=== PATIENT | female | born 1995 | race Caucasian/White ===

== ENCOUNTER → 2017-10-28 | Outpatient (CLI) | payer OTHER | END | disposition home or self-care (01) | LOC: C.LABSPEC 17:49 | PROVIDERS: ATTEND Obstetrics & Gynecology | DX: Z34.03 Encounter for supervision of normal first pregnancy, third trimester (principal) ==

== ENCOUNTER 2017-11-15 23:25 | Outpatient (CLI) | payer OTHER ==
[~2017-11-15] VITALS: Ht 162.6 cm; Wt 67.1 kg
[2017-11-16 00:50] VITALS: Ht 162.6 cm; Wt 67.1 kg
[2017-11-16] MEDS ORDERED: BENADRYL HOME PACK 25 MG TAB PO ONE (03:45)
== END 2017-11-16 04:00 | disposition home or self-care (01) ==
LOC: C.LD 23:25 → C.OPB 23:25
PROVIDERS: ATTEND Obstetrics & Gynecology
DX: O62.9 Abnormality of forces of labor, unspecified (principal); Z3A.39 39 weeks gestation of pregnancy

== ENCOUNTER 2017-11-24 00:59 | Outpatient (CLI) | payer OTHER ==
[~2017-11-24] VITALS: Ht 162.6 cm; Wt 67.0 kg
[2017-11-24 02:26] VITALS: Ht 162.6 cm; Wt 67.0 kg
[2017-11-24] MEDS ORDERED: NURSING VERBAL MED ORDER ONE (05:00)
[2017-11-24] MEDS ORDERED: ACETAMINOPHEN 325 MG TAB ONE (05:06)
[2017-11-24] MEDS ORDERED: ACETAMINOPHEN 325 MG TAB PO ONE (05:15)
[2017-11-25] MEDS ORDERED: PRENTAB26 PO (13:28)
== END 2017-11-24 05:20 | disposition home or self-care (01) ==
LOC: C.OPB 00:59 → C.LD 00:59 → C.OPB 05:20
PROVIDERS: ATTEND Obstetrics & Gynecology
DX: Z34.00 Encounter for supervision of normal first pregnancy, unspecified trimester (principal)

== ENCOUNTER 2020-03-11 23:25 | Inpatient (IN) ==
[2020-03-12] MEDS ORDERED: OXYTOCIN 30 UNITS/500 ML BAG IV PRN ×2 (00:53→09:31)
--- NOTE | 2020-03-12 00:57 | History & Physical Report ---
Date of Service March 12, 2020 Assessment & Plan (1) : Since she has made cervical change since last office visit, regular ctx and getting more and more uncomfortable, will admit for labor. History of Present Illness Chief Complaint: labor Primary Care Provider: NO PCP 24yo @ 39 5/7, contractions every 2 minutes, getting worse throughout the night. No leaking fluid, no vaginal bleeding. + movement. GDM, diet controlled. Allergies Allergy/AdvReac Type Severity Reaction Status Date / Time No Known Drug Allergies Allergy Unknown Verified 03/11/20 23:43 Home Medications Medication Instructions Recorded Confirmed Type prenat.vits,eugene,glj-[id number] 1 tab PO DAILY 01/18/19 03/11/20 History acetone (urine) test #50 ea 01/11/20 03/06/20 Rx blood sugar diagnostic #150 ea 01/11/20 03/06/20 Rx blood-glucose meter #1 ea 01/11/20 03/06/20 Rx lancets 33 gauge #150 ea 01/11/20 03/06/20 Rx breast pump #1 ea 02/13/20 03/06/20 Rx Patient History Medical History History of varicella Normal labor PPD#2 with acute urinary retention. TOV yesterday with void x1 followed by inability to void again and large bladder volume, so gardner was replaced and then removed at 4am today. If unable to void by noon, for replacement of gardner with leg bag teaching to allow D/C home, and removal in office setting after 3 days. If able to void with low residual, can go home without catheter. Spontaneous vaginal delivery 10/2017 [facility] Surgical History No pertinent past surgical history Family History Mother Anemia Social History Smoking Status: Never smoker Hx Alcohol Use: No Hx Substance Use: No Preferred Language: Chinese Communication Ability: Effective Beliefs That Will Affect Care: None marital status: marital status details: Spouse Bryan Gates ([phone] Current Living Situation: Spouse Current Living Situation Comment: apartment with and daughter Other Information That Helps Us Care for You: No Assistive Devices: None Review of Systems All systems reviewed & are unremarkable except as noted in HPI & below Physical Exam Physical Exam: FHT Cat 1 [place] Q 2 SVE 3-4/80/-2 Constitutional: WD/WN, vitals as above Respiratory: normal respiratory effort, lungs clear to auscultation no respiratory distress Cardiovascular: Rate/Rhythm: regular rate and regular rhythm Gastrointestinal (Abdomen): Inspection/Auscultation: abdomen normal to inspection Percussion/Palpation: abdomen soft; abdomen nontender Gravid. No s/s chorio or abruption. Skin: no rashes, warm and dry Psychiatric: A+Ox3, euthymic affect Results & Data ([facility]) Vital Signs (Past 12 Hours) Vital Signs Temp Pulse Resp BP 03/11/20 23:44 36.6 C 18 03/11/20 23:40 36.6 C 89 18 120/74 Coding Level of Care Code None Diagnoses Z34.90
[2020-03-12 01:25] LABS: Hematocrit (blood only) 35.2 % (37-47); Hemoglobin 12.4 g/dL (12.0-16.0); Mean Corpuscular Hemoglobin 31.3 pg (25-34); Mean Corpuscular Hgb Conc 35.2 g/dL (32-36); Mean Corpuscular Volume 88.9 fL (80-100); Mean Platelet Volume 13.2 fL (7.4-10.4); Platelet Count 158 K/uL (130-400); RDW Coefficient of Variation 13.4 % (11.5-14.5); RDW Standard Deviation 43.5 fL (36.4-46.3); Red Blood Count 3.96 M/uL (4.2-5.4); White Blood Count 10.24 K/uL (4.8-10.8)
--- NOTE | 2020-03-12 03:59 | Labor Progress Brief Note ---
Date of Service March 12, 2020 Subjective Uncomfortable with ctx. Desires epidural. FHT Cat 1 [place] Q 2-5 SVE 4-5/90/-1 AROM clear with pink tinge. Assessment & Plan Admission and Anticipated Discharge Date Admission Date: March 12, 2020 Results & Data ([facility]) Vital Signs (Past 12 Hours) Vital Signs Temp Pulse Resp BP 03/12/20 03:19 36.7 C 93 H 18 114/61 03/11/20 23:44 36.6 C 18 03/11/20 23:40 36.6 C 89 18 120/74 Coding Level of Care Code None
[2020-03-12] MEDS: LACTATED RINGER'S 1,000 ML IV PRN ×2 (04:04→05:04)
[2020-03-12] MEDS ORDERED: ePHEDrine sulfate 50 MG/ML AMP ONE (04:08)
[2020-03-12] MEDS ORDERED: fentaNYL citrate 100 MCG/2 ML VIAL ONE (04:09)
[2020-03-12] MEDS ORDERED: SODIUM CHLORIDE 0.9% INJ 10 ML VIAL ONE (04:09)
[2020-03-12] MEDS ORDERED: BUPIVACAINE 0.25% 30 ML VIAL ONE (04:09)
[2020-03-12] MEDS ORDERED: fentaNYL 2MCG/ML ROPIVACAINE 1.25MG/ML 100 ML BAG EPI ONE (04:10)
--- NOTE | 2020-03-12 04:52 | Anesthesiology Consultation ---
Date of Service March 12, 2020 Assessment & Plan Chart Review Chart Review: Acceptable Risk for Surgery, Patient NOT seen in Pre Admission Testing and Acceptable Risk for Labor Epidural Consults Requested none ASA ASA2 Proposed Anesthesia Anesthesia Type: Labor Epidural and CSE Risk / Benefits Reviewed With: PT / POA / Parent / Guardian, Accepts Plan and Informed Consent Obtained Additional Comments: covid test negative History Height/Weight Height: 5 ft 5 in Weight: 67.132 kg Allergies Allergy/AdvReac Type Severity Reaction Status Date / Time No Known Drug Allergies Allergy Unknown Verified 03/11/20 23:43 Medications Home Medications Medication Instructions Recorded Confirmed Last Taken prenat.vits,eugene,[id number] 1 tab PO DAILY 01/18/19 03/11/20 03/11/20 acetone (urine) test #50 ea 01/11/20 03/06/20 Unknown blood sugar diagnostic #150 ea 01/11/20 03/06/20 Unknown blood-glucose meter #1 ea 01/11/20 03/06/20 Unknown lancets 33 gauge #150 ea 01/11/20 03/06/20 Unknown breast pump #1 ea 02/13/20 03/06/20 Unknown Active Medications Generic Name Dose Route Start Last Admin Trade Name Freq PRN Reason Stop Dose Admin Lactated Ringer's 1,000 mls @ 125 mls/hr 03/12/20 00:53 03/12/20 04:04 Lr IV 03/14/20 00:52 999 mls/hr .Q8H PRN Administration L&D Protocol Protocol NPO Date Last Intake of Fluids: 03/12/20 Time Last Intake of Fluids: 04:00 Date Last Intake of Solids: 03/11/20 Time Last Intake of Solids: 18:30 Past Medical History Medical History History of varicella Normal labor PPD#2 with acute urinary retention. TOV yesterday with void x1 followed by inability to void again and large bladder volume, so gardner was replaced and then removed at 4am today. If unable to void by noon, for replacement of gardner with leg bag teaching to allow D/C home, and removal in office setting after 3 days. If able to void with low residual, can go home without catheter. Spontaneous vaginal delivery 10/2017 [facility] Exercise / Class Metabolic Activity II 4-5 Yardwork/Stairs/Walk up hill Past Family History Family History Mother Anemia Past Surgical History Surgical History No pertinent past surgical history Past Anesthesia History No Hx of Anesthesia Complications and No Family Hx of Anesthesia Complications History of PONV No Hx of PONV and No Hx of Motion Sickness Social History Smoking Status: Never smoker Hx Alcohol Use: No Hx Substance Use: No Physical Exam Vital Signs Last Vital Signs Temp 36.5 C 03/12/20 03:58 Pulse 89 03/12/20 04:45 Resp 18 03/12/20 03:58 BP 114/61 03/12/20 03:19 Pulse Ox 100 03/12/20 04:45 Constitutional + obese ENMT Mouth: no dentition abnormality Thyromental Distance: < 3.5 Finger Breadths Mallampati Class: II Neck normal visual inspection and trachea midline; neck extension not limited Respiratory normal respiratory effort Auscultation: lungs clear to auscultation bilaterally Cardiovascular Rate/Rhythm: regular rate and regular rhythm Heart Sounds: no murmur Vessels: no carotid bruit Musculoskeletal Spine: lumbar spine normal to inspection; normal cervical ROM Neurologic moves all extremities Motor/Sensory: no sensory deficit Psychiatric Orientation: alert and oriented x 3 Testing Laboratory Results 03/12/20 01:13 03/12/20 02:18 POC Glucose 92
[2020-03-12] MEDS ORDERED: ONDANSETRON INJ 2 MG/ML 2 ML VIAL IV PRN (05:16)
[2020-03-12] MEDS ORDERED: NALOXONE HCL 0.4 MG/1 ML VIAL/CARP IV PRN (05:16)
[2020-03-12] MEDS ORDERED: ePHEDrine sulfate 50 MG/ML AMP IV PRN (05:16)
[2020-03-12] MEDS ORDERED: fentaNYL 2MCG/ML ROPIVACAINE 1.25MG/ML 100 ML BAG EPI PRN (05:16)
[2020-03-12] MEDS ORDERED: diphenhydrAMINE 50 MG/ML VIAL IV PRN (05:16)
[2020-03-12] MEDS ORDERED: PROMETHAZINE HCL 25 MG in SODIUM CHLORIDE 0.9% 50 ML IV PRN (05:16)
[2020-03-12] MEDS ORDERED: NALOXONE HCL 1 MG in SODIUM CHLORIDE 0.9% 1000ML 1,000 ML IV PRN (05:16)
[2020-03-12 09:28] LABS: Base Excess Cord Arterial Bld -3.2 mEq/L (-9-1.8); CO2 Cord Arterial Blood 65 mmHg (39.1-73.5); HCO3 Cord Arterial Blood 26 mmol/L (19.7-28.5); PO2 Cord Arterial Blood 25 mmHg (4.1-31.7); pH Cord Arterial Blood 7.23 (7.1-7.38)
--- NOTE | 2020-03-12 09:28 | Delivery Summary ---
Vaginal Delivery Summary Date of Service March 12, 2020 Findings: Viable male infant with Apgars of 9 and 10. Baby delivered over a midline episiotomy. Cord gases cord blood samples obtained. Episiotomy repaired with 4-0 and 2-0 Vicryl. Estimated blood loss 300 cc. Labor course: The patient is a 24-year-old 2 para 1, with an EDC of 14 March, at 39+ weeks gestational age who presented to labor and delivery in active labor. Contractions began at approximately 2000 hrs. on 11 March. They increased in intensity. Patient denied vaginal bleeding or leaking of fluid. The patient's course was remarkable for gestational diabetes diagnosed to 28 weeks gestational weeks. The patient was managed per protocol and abdominal circumferences were all less than the 75th percentiles. Laboratory values for the show blood type of O+, antibody negative, rubella immune, hepatitis B negative, she declined all genetic screening, and she had a negative third trimester beta strep culture. Upon admission the patient was deemed to be in active labor anesthesia was consulted and an epidural was placed. Following placement of the epidural patient had artificial rupture membranes of clear fluid. Patient progressed to full dilatation and began her second stage. Delivering physician assumed care for the patient at this point. Patient pushed for approximately 10 minutes delivering the viable male infant over the midline episiotomy. Cord was clamped and cut cord gases cord blood samples were obtained. Placenta was delivered spontaneously. Episiotomy was repaired with 4-0 and 2-0 Vicryl in a routine fashion estimated blood loss was 300 cc. Sponge and needle count was correct. [facility] Vaginal Delivery Charge Vaginal Delivery Codes: 28342 global code for the antepartum, delivery, and post-
[2020-03-12] MEDS ORDERED: BENZOCAINE 20% AER SPR 82.5 GM CAN EXT PRN (09:31)
[2020-03-12] MEDS ORDERED: SUPERCREAM 0.870% 15 GM JAR EXT PRN (09:31)
[2020-03-12] MEDS ORDERED: HYDROCORTISONE ACETATE 25 MG SUPP PR PRN (09:31)
[2020-03-12] MEDS ORDERED: ACETAMINOPHEN 325 MG TAB PO PRN (09:31)
[2020-03-12] MEDS ORDERED: ACETAMINOPHEN W/CODEINE #3 1 TAB PO PRN (09:31)
[2020-03-12] MEDS ORDERED: DIPHTHERIA/TETANUS/PERTUSSIS 0.5 ML SYR/VIAL IM ONE (09:31)
[2020-03-12 09:33] LABS: Base Excess Cord Venous Blood -1.2 mEq/L (-7.7-1.9); Cord Venous Blood HCO3 25 mmol/L (18.4-26.8); Cord Venous Blood PCO2 47 mmHg (30.4-57.2); Cord Venous Blood PO2 28 mmHg (14.1-43.3); Cord Venous Blood pH 7.34 (7.20-7.44); Oxygen Sat Cord Arterial Blood < 60.0 % (<60)
--- NOTE | 2020-03-12 09:48 | Anesthesiology Progress Note ---
Date of Service March 12, 2020 Anesthesia Post Procedure Vital Signs Vital Signs: Temp Pulse Resp BP Pulse Ox 03/12/20 09:34 80 132/57 L 03/12/20 09:20 95 H 174/68 H 03/12/20 09:03 83 104/55 L 03/12/20 08:56 93 H 117/59 L 03/12/20 08:46 103 H 92 03/12/20 08:45 98 H 99 03/12/20 08:42 92 H 122/58 L 03/12/20 08:41 87 93 03/12/20 08:40 104 H 100 03/12/20 08:35 95 H 97 03/12/20 08:30 97 H 100 03/12/20 08:27 87 131/63 03/12/20 08:25 85 100 03/12/20 08:20 92 H 97 03/12/20 08:15 89 100 03/12/20 08:12 88 121/70 03/12/20 08:10 91 H 97 03/12/20 08:05 85 99 03/12/20 08:00 86 98 03/12/20 07:57 89 119/61 03/12/20 07:55 92 H 99 03/12/20 07:50 90 97 03/12/20 07:45 88 98 03/12/20 07:42 90 111/64 03/12/20 07:40 94 H 98 03/12/20 07:35 86 97 03/12/20 07:30 36.8 C 91 H 16 98 03/12/20 07:26 94 H 110/60 03/12/20 07:25 86 98 03/12/20 07:20 85 99 03/12/20 07:15 83 99 03/12/20 07:12 78 114/59 L 03/12/20 07:10 93 H 99 03/12/20 07:05 84 98 03/12/20 07:00 77 18 99 03/12/20 06:57 76 110/59 L 03/12/20 06:55 78 97 03/12/20 06:50 80 97 03/12/20 06:45 72 98 03/12/20 06:42 80 110/61 03/12/20 06:40 80 98 03/12/20 06:35 76 99 12/15/20 06:30 37.1 C 83 18 100 03/12/20 06:27 75 129/75 03/12/20 06:25 87 100 03/12/20 06:20 78 97 03/12/20 06:15 78 96 03/12/20 06:13 76 106/55 L 03/12/20 06:10 80 96 03/12/20 06:05 80 96 03/12/20 06:00 77 18 96 03/12/20 05:57 77 104/56 L 03/12/20 05:55 81 96 03/12/20 05:50 76 97 03/12/20 05:45 78 97 03/12/20 05:41 80 114/66 03/12/20 05:40 73 98 03/12/20 05:35 77 97 03/12/20 05:30 77 18 97 03/12/20 05:26 75 116/62 03/12/20 05:25 76 99 03/12/20 05:24 75 104/61 03/12/20 05:22 80 111/65 03/12/20 05:20 79 120/63 99 03/12/20 05:18 71 113/64 03/12/20 05:16 85 118/66 03/12/20 05:15 77 100 03/12/20 05:14 76 118/61 03/12/20 05:13 79 139/69 03/12/20 05:12 77 92 03/12/20 05:10 78 99 03/12/20 05:09 79 111/70 03/12/20 05:06 86 146/88 H 03/12/20 05:05 89 99 03/12/20 05:01 88 146/84 H 03/12/20 05:00 95 H 99 03/12/20 04:58 90 93 03/12/20 04:55 79 100 03/12/20 04:50 79 100 03/12/20 04:45 89 100 03/12/20 04:40 73 100 03/12/20 04:35 71 98 03/12/20 04:30 69 100 03/12/20 04:25 71 100 03/12/20 04:20 80 99 03/12/20 04:15 79 100 03/12/20 04:10 76 99 03/12/20 04:05 78 100 03/12/20 03:58 36.5 C 18 03/12/20 03:19 36.7 C 93 H 18 114/61 03/11/20 23:44 36.6 C 18 03/11/20 23:40 36.6 C 89 18 120/74 Transfer of Care Handoff Completed per policy Notes Mental Status: alert / awake / arousable and participated in evaluation Patient Amnestic to Procedure: Yes Nausea / Vomiting: adequately controlled Pain: adequately controlled Airway Patency, RR, SpO2: stable & adequate BP & HR: stable & adequate Hydration State: stable & adequate Anesthetic Complications: no major complications apparent and Pt Satisfied with anesthetic care
[2020-03-12] MEDS: IBUPROFEN 600 MG TAB PO PRN ×2 (18:03→22:47)
[2020-03-12] MEDS: DOCUSATE SODIUM 100 MG CAP PO SCH (20:25)
--- NOTE | 2020-03-13 06:53 | Obstetrical Progress Note ---
Date of Service <Lasha Blake MD - Last Filed: 03/13/20 07:20> March 13, 2020 Assessment & Plan <Lasha Blake MD - Last Filed: 03/13/20 07:20> (1) state: 24 y/o s/p at 39+wks on 03/12/20 PPD1. Stable. O+. Rubella immune. - other than voiding, meeting other milestones. - continue monitoring for urinary retention and continue intermittent straight cath - continue routine care - tentative dispo tomorrow for further monitoring of UOP today Subjective <Lasha Blake MD - Last Filed: 03/13/20 07:20> Ambulation: ambulating normally Voiding: no voiding problems Passing Gas:: Yes Diet Tolerance:: regular diet Lochia:: Small Feeding Type:: breast feeding Current Pain Level(1-10): 0 Still requiring intermittent straight cath. States that since yesterday evening, has been able to void in small amounts, some improvement. Requested straight cath this AM. No other complaints. Review of Systems Denies fever, chills, sweats Denies shortness of breath, chest pain, palpitations. Denies breast pain. Denies dysuria. Denies headache or changes in vision. Denies nausea/vomiting. Denies numbness, tingling, weakness. Physical Exam <Lasha Blake MD - Last Filed: 03/13/20 07:20> General: Alert, oriented. No acute distress. Cardiac: Regular rate and rhythm, no murmurs/rubs/gallops. Respiratory: Clear to auscultation bilaterally, no wheezes/rales/rhonchi. No respiratory distress. Abdomen: , soft, nontender. Uterus: Uterine fundus firm, palpable 1cm above to the right of umbilicus. Lower Extremities: Trace LE edema. No deep calf pain. Enrique's negative bilaterally. Results & Data ([facility]) <Lasha Blake MD - Last Filed: 03/13/20 07:20> Vital Signs (Past 12 Hours) Vital Signs Temp Pulse Resp BP 03/13/20 03:29 36.3 C L 87 16 91/54 L 03/13/20 00:00 36.4 C L 82 18 101/62 03/12/20 19:25 36.4 C L 89 18 120/76 Medications Administered <Leon J. Hovick Jr, MD, FACOG - Last Filed: 03/13/20 07:30> Co-Signing Physician Notes Resident Physician Supervision Note: I was present with Dr. Blake during the history and exam. I discussed the case with the resident and agree with the findings and plan as documented in the note. Any exceptions or clarifications are listed here: urinary retention after epidural. Straight cath x2, will place Mike catheter now. Documented By: Leon Parker Jr, MD, FACOG
[2020-03-13] MEDS ORDERED: LIDOCAINE 2% JELLY 5 ML TUBE ONE (07:44)
[2020-03-13] MEDS: IBUPROFEN 600 MG TAB PO PRN (08:51)
[2020-03-13] MEDS: FERROUS SULFATE 325 MG TAB PO SCH (08:51)
[2020-03-13] MEDS: PRENATAL VITAMIN 1 TAB PO SCH (08:52)
[2020-03-13] MEDS: DOCUSATE SODIUM 100 MG CAP PO SCH ×2 (08:52→20:49)
[2020-03-13] MEDS ORDERED: bisacodyL 5 MG TABEC PO SCH (20:00)
--- NOTE | 2020-03-14 06:56 | Obstetrical Progress Note ---
Date of Service <Lasha Blake MD - Last Filed: 03/14/20 07:44> March 14, 2020 Assessment & Plan <Lasha Blake MD - Last Filed: 03/14/20 07:44> (1) state: 24 y/o s/p at 39+wks on 03/12/20 PPD2. Stable. O+. Rubella immune. - No BM, but meeting other milestones. gardner out yesterday evening. voiding ok - continue routine care - dispo home this afternoon. d/c instructions reviewed. Subjective <Lasha Blake MD - Last Filed: 03/14/20 07:44> Ambulation: ambulating normally Voiding: no voiding problems Passing Gas:: Yes Diet Tolerance:: regular diet Lochia:: Small Feeding Type:: breast feeding Current Pain Level(1-10): 2 No BM. + flatus. Voiding since gardner out last night. Some lower abd cramps w/ . Review of Systems Denies fever, chills, sweats Denies shortness of breath, chest pain, palpitations. Denies breast pain. Denies dysuria. Denies headache or changes in vision. Denies nausea/vomiting. Denies numbness, tingling, weakness. Physical Exam <Lasha Blake MD - Last Filed: 03/14/20 07:44> General: Alert, oriented. No acute distress. Cardiac: Regular rate and rhythm, no murmurs/rubs/gallops. Respiratory: Clear to auscultation bilaterally, no wheezes/rales/rhonchi. No respiratory distress. Abdomen: , soft, nontender. Uterus: Uterine fundus firm, palpable 1cm below umbilicus. Lower Extremities: No lower extremity edema or swelling. No deep calf pain. Enrique's negative bilaterally. Results & Data ([facility]) <Lasha Blake MD - Last Filed: 03/14/20 07:44> Vital Signs (Past 12 Hours) Vital Signs Temp Pulse Resp BP Pulse Ox 03/13/20 23:15 36.8 C 73 18 109/71 98 03/13/20 19:30 36.8 C 76 18 114/74 98 Medications Administered <Napoleon St MD - Last Filed: 03/14/20 09:25> Co-Signing Physician Notes Patient seen and evaluated and agree with the above findings and plan. Stable for discharge
[2020-03-14 07:16] LABS: Hematocrit (blood only) 32.5 % (37-47); Hemoglobin 11.1 g/dL (12.0-16.0)
[2020-03-14] MEDS: DOCUSATE SODIUM 100 MG CAP PO SCH (09:04)
[2020-03-14] MEDS: FERROUS SULFATE 325 MG TAB PO SCH (09:05)
[2020-03-14] MEDS: PRENATAL VITAMIN 1 TAB PO SCH (09:06)
[2020-03-14 09:33] VITALS: BP 107/70; PULSE 98; TEMP 98.1; O2SAT 97
== END 2020-03-14 12:25 | disposition home or self-care (01) | DRG 807 ==
LOC: OPB 23:25 → 4S1 23:26 → 4S2 03-12 11:30

== ENCOUNTER 2023-01-30 01:04 | Inpatient (IN) ==
[2023-01-30] MEDS ORDERED: PENICILLIN G POTASSIUM 6 MU in DEXTROSE 5% 250 ML IV STA (06:07)
[2023-01-30] MEDS ORDERED: LIDOCAINE 1% LOCAL 20 ML VIAL INFIL PRN (06:07)
[2023-01-30] MEDS ORDERED: OXYTOCIN 30 UNITS/500 ML BAG IV PRN ×3 (06:07→17:51)
[2023-01-30] MEDS: LACTATED RINGER'S 1,000 ML IV PRN ×3 (06:35→10:54)
[2023-01-30] MEDS ORDERED: fentANYL 2 MCG/ML BUPIVacaine 0.125%-NSS 100ML BAG ONE (07:03)
[2023-01-30] MEDS ORDERED: LIDOCAINE 2%/EPINEPHRINE 1:200,000 20 ML PF ONE (07:03)
[2023-01-30] MEDS ORDERED: SODIUM CHLORIDE 0.9% PF INJ 10 ML VIAL ONE (07:03)
[2023-01-30] MEDS ORDERED: fentaNYL citrate PF 100 MCG/2 ML VIAL ONE (07:03)
[2023-01-30] MEDS ORDERED: BUPIVACAINE 0.25% PF 30 ML VIAL ONE (07:03)
[2023-01-30] MEDS ORDERED: ePHEDrine sulfate 50 MG/ML AMP ONE (07:03)
[2023-01-30 07:05] LABS: Hematocrit (blood only) 32.7 % (37.0-47.0); Hemoglobin 11.1 g/dl (12.0-16.0); Mean Corpuscular Hemoglobin 30.4 pg (25.0-34.0); Mean Corpuscular Hgb Conc 33.9 g/dL (32.0-36.0); Mean Corpuscular Volume 89.6 fL (80.0-100.0); Mean Platelet Volume 12.7 fL (9.4-12.4); Platelet Count 144 K/uL (130-400); RDW Coefficient of Variation 12.6 % (11.5-14.5); RDW Standard Deviation 41.2 fL (36.4-46.3); Red Blood Count 3.65 M/uL (4.20-5.40); White Blood Count 9.37 K/ul (4.8-10.8)
--- NOTE | 2023-01-30 07:46 | History & Physical Report ---
Date of Service January 30, 2023 Assessment & Plan (1) GBS (group B Streptococcus carrier), +RV culture, currently : Plan: 27 yo at 39 1/7 wga presents in labor VSS Fetus cat 1 Labor - augment PRN GBS+, pcn ordered desires epidural Admission and Anticipated Discharge Date Admission Date: January 30, 2023 History of Present Illness Chief Complaint: Contractions Primary Care Provider: NO PCP 27 yo at 39 1/7 wga presents w/ ctx. 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 G2 2019 at 39 wks G3 current denies hx stis Allergies Allergy/AdvReac Type Severity Reaction Status Date / Time No Known Drug Allergies Allergy Unknown Verified 01/28/23 12:26 Home Medications Medication Instructions Recorded Confirmed Type prenat.vits,eugene,[id number] 1 tab PO DAILY 01/18/19 01/30/23 History ferrous sulfate [Iron (ferrous PO 12/22/22 01/28/23 History sulfate)] Patient History Medical History Spontaneous vaginal delivery 10/2017 [facility] Encounter for screening laboratory testing for COVID-19 virus Gestational diabetes mellitus (GDM) affecting , antepartum Supervision of normal intrauterine in multigravida Normal labor PPD#2 with acute urinary retention. TOV yesterday with void x1 followed by inability to void again and large bladder volume, so gardner was replaced and then removed at 4am today. If unable to void by noon, for replacement of gardner with leg bag teaching to allow D/C home, and removal in office setting after 3 days. If able to void with low residual, can go home without catheter. Surgical History S/P nasal surgery to straighten Family History Mother Anemia Denies family history of Ovarian cancer Breast cancer Colorectal cancer Social History (Updated 01/30/23 @ 01:14 by Tami Conley) Smoking Status: Never smoker Do You Dip or Chew Tobacco: No; Hx Alcohol Use: No Hx Substance Use: No Preferred Language: Spanish Communication Ability: Effective Communication Tools: IPad and Physical Gestures Color Buffer Required: Yes Beliefs That Will Affect Care: None marital status: marital status details: Spouse Daniel Schultz (28) [phone] Current Living Situation: Spouse Current Living Situation Comment: lives with , daughter and son, no pets current occupational status: unemployed current occupation: homemaker Other Information That Helps Us Care for You: No Feels Safe at Home: Yes Safety Concerns: Feels Safe At This Time Diet: regular Assistive Devices: Contacts Physical Exam Genitourinary: OB Exam Monitor Tracing: + external FHT monitor used, + external uterine monitor used and + category I (125/mod/+accel/-decel) Was 3+cm progressed to 4cm per nursing Results & Data Vital Signs (Past 12 Hours) Vital Signs Temp Pulse Resp BP Pulse Ox 01/30/23 07:38 99 01/30/23 07:38 76 01/30/23 07:33 99 01/30/23 07:33 80 01/30/23 07:28 100 01/30/23 07:28 77 01/30/23 07:27 78 01/30/23 07:27 104/59 L 01/30/23 07:23 99 01/30/23 07:23 81 01/30/23 07:20 18 01/30/23 07:20 97.7 F 18 01/30/23 07:18 99 01/30/23 07:18 78 01/30/23 07:10 97.7 F 16 01/30/23 07:10 16 01/30/23 05:21 77 01/30/23 05:21 114/65 01/30/23 01:15 98.6 F 18 01/30/23 01:11 71 134/77 Laboratory Results OB Labs: Blood Type O Positive 07/23/22 Antibody Screen NEGATIVE 07/23/22 Hemoglobin 10.6 g/dl (12.0-16.0) L 11/16/22 Hematocrit 30.4 % (37.0-47.0) L 11/16/22 Mean Corpuscular Volume 86.5 fL (80.0-100.0) 07/23/22 Platelet Count 222 K/uL (130-400) 07/23/22 Rubella IgG Antibody Immune (Immune) 07/23/22 Rapid Plasma Reagin Nonreactive (Nonreactive) 07/23/22 Hepatitis B Surface Antigen Neg (Neg) 05/15/20 Hepatitis B Surface Antigen. NON-REACTIVE (NON-REACTIVE) 07/23/22 Hepatitis C Antibody (EIA) NON-REACTIVE (NON-REACTIVE) 07/23/22 HIV (1&2) Ab and P24 Ag, 4th Gener Neg (Neg) 08/11/19 HIV (1&2) Ag and Ab Confirmation NON-REACTIVE (NON-REACTIVE) 07/23/22 Glucose 1 Hour 50 gm Load 126 mg/dl (70-130) 11/16/22 OB Optional Labs: Chlamydia trachomatis RNA Not Detected (NotDetected) 07/23/22 Neisseria gonorrhoeae RNA Not Detected (NotDetected) 07/23/22 Labs Reviewed: declines all genetic testing- [facility] Declines QUAD GBS+ Coding Level of Care Code None Diagnoses GBS (group B Streptococcus carrier), +RV culture, currently O99.820
--- NOTE | 2023-01-30 07:57 | Anesthesiology Consultation ---
Date of Service January 30, 2023 Assessment & Plan Chart Review Chart Review: Acceptable Risk for Surgery and Patient NOT seen in Pre Admission Testing Consults Requested none ASA ASA2 Proposed Anesthesia Anesthesia Type: Labor Epidural and CSE Risk / Benefits Reviewed With: PT / POA / Parent / Guardian, Accepts Plan and Informed Consent Obtained History Height/Weight Height: 5 ft 4 in Weight: 75.568 kg Allergies Allergy/AdvReac Type Severity Reaction Status Date / Time No Known Drug Allergies Allergy Unknown Verified 01/28/23 12:26 Medications Home Medications Medication Instructions Recorded Confirmed Last Taken prenat.vits,eugene,[id number] 1 tab PO DAILY 01/18/19 01/30/23 01/29/23 12:00 ferrous sulfate [Iron (ferrous PO 12/22/22 01/28/23 01/29/23 12:00 sulfate)] Active Medications Generic Name Dose Route Start Last Admin Trade Name Freq PRN Reason Stop Dose Admin Lactated Ringer's 1,000 mls @ 125 mls/hr 01/30/23 06:07 01/30/23 06:35 Lr IV 02/01/23 06:06 125 mls/hr .Q8H PRN Administration L&D Protocol Protocol NPO Date Last Intake of Fluids: 01/30/23 Time Last Intake of Fluids: 06:45 Last Intake of Fluids Comment: sips water Date Last Intake of Solids: 01/29/23 Time Last Intake of Solids: 21:30 Past Medical History Medical History Spontaneous vaginal delivery 10/2017 [facility] Encounter for screening laboratory testing for COVID-19 virus Gestational diabetes mellitus (GDM) affecting , antepartum Supervision of normal intrauterine in multigravida Normal labor PPD#2 with acute urinary retention. TOV yesterday with void x1 followed by inability to void again and large bladder volume, so gardner was replaced and then removed at 4am today. If unable to void by noon, for replacement of gardner with leg bag teaching to allow D/C home, and removal in office setting after 3 days. If able to void with low residual, can go home without catheter. Exercise / Class Metabolic Activity II 4-5 Yardwork/Stairs/Walk up hill Past Family History Family History Mother Anemia Denies family history of Ovarian cancer Breast cancer Colorectal cancer Past Surgical History Surgical History S/P nasal surgery to straighten Past Anesthesia History No Hx of Anesthesia Complications and No Family Hx of Anesthesia Complications History of PONV No Hx of PONV and No Hx of Motion Sickness Social History Smoking Status: Never smoker Do You Dip or Chew Tobacco: No Hx Alcohol Use: No Hx Substance Use: No Physical Exam Vital Signs Last Vital Signs Temp 36.5 C 01/30/23 07:20 Pulse 75 01/30/23 07:53 Resp 18 01/30/23 07:20 BP 106/61 01/30/23 07:42 Pulse Ox 100 01/30/23 07:53 Testing Laboratory Results 01/30/23 06:19
[2023-01-30] MEDS ORDERED: BUPIVACAINE 0.25% PF 30 ML VIAL EPI STA (08:25)
[2023-01-30] MEDS ORDERED: fentANYL 2 MCG/ML BUPIVacaine 0.125%-NSS 100ML BAG EPI PRN (08:25)
[2023-01-30] MEDS ORDERED: ePHEDrine sulfate 50 MG/ML AMP IV PRN (08:25)
[2023-01-30] MEDS ORDERED: fentaNYL citrate PF 100 MCG/2 ML VIAL EPI PRN (08:25)
[2023-01-30] MEDS ORDERED: NALOXONE HCL 0.4 MG/1 ML VIAL/CARP IV PRN (08:25)
[2023-01-30] MEDS ORDERED: fentaNYL citrate PF 100 MCG/2 ML VIAL EPI STA (08:25)
[2023-01-30] MEDS ORDERED: LIDOCAINE 2% MPF LOCAL 5 ML VIAL EPI PRN (08:25)
[2023-01-30] MEDS ORDERED: LIDOCAINE 2%/EPINEPHRINE 1:200,000 20 ML PF EPI STA (08:25)
[2023-01-30] MEDS ORDERED: NALOXONE HCL 1 MG in SODIUM CHLORIDE 0.9% 1,000 ML IV PRN (08:25)
[2023-01-30] MEDS ORDERED: PROMETHAZINE HCL 25 MG in SODIUM CHLORIDE 0.9% 50 ML IV PRN (08:25)
[2023-01-30] MEDS ORDERED: diphenhydrAMINE 50 MG/ML VIAL IV PRN (08:25)
[2023-01-30] MEDS ORDERED: SODIUM CHLORIDE 0.9% PF INJ 10 ML VIAL EPI STA (08:25)
[2023-01-30] MEDS ORDERED: ONDANSETRON INJ 2 MG/ML 2 ML VIAL IV PRN (08:25)
[2023-01-30] MEDS ORDERED: ROPIVACAINE 0.5% PF 5 MG/ML 20 ML VIAL EPI PRN (08:25)
[2023-01-30] MEDS ORDERED: NALBUPHINE HCL INJ 10 MG/ML AMP IV PRN (08:25)
[2023-01-30] MEDS ORDERED: SODIUM CHLORIDE 0.9% PF INJ 10 ML VIAL EPI PRN (08:25)
[2023-01-30] MEDS ORDERED: BUPIVACAINE 0.25% PF 30 ML VIAL EPI PRN (08:25)
[2023-01-30] MEDS: PENICILLIN G POTASSIUM 3 MU in DEXTROSE 5% 100 ML IV PRN ×2 (09:56→14:09)
--- NOTE | 2023-01-30 10:52 | Labor Progress Brief Note ---
Date of Service January 30, 2023 Subjective Comfortable with epidural. FHT Cat 1 [place] Q 2-4, irreg SVE 60/-2 AROM clear fluid. Continue to monitor - if ctx do not increase with AROM, will consider pitocin. Assessment & Plan Admission and Anticipated Discharge Date Admission Date: January 30, 2023 Results & Data Vital Signs (Past 12 Hours) Vital Signs Temp Pulse Resp BP Pulse Ox 01/30/23 10:51 75 01/30/23 10:51 111/69 01/30/23 10:48 100 01/30/23 10:48 76 01/30/23 10:46 76 01/30/23 10:46 132/60 01/30/23 10:45 36.5 C 01/30/23 10:43 100 01/30/23 10:43 90 01/30/23 10:41 86 01/30/23 10:41 114/57 L 01/30/23 10:38 100 01/30/23 10:38 82 01/30/23 10:35 82 01/30/23 10:35 118/72 01/30/23 10:33 99 01/30/23 10:33 82 01/30/23 10:31 84 01/30/23 10:31 111/69 01/30/23 10:30 16 01/30/23 10:30 16 01/30/23 10:28 100 01/30/23 10:28 87 01/30/23 10:27 78 01/30/23 10:27 123/74 01/30/23 10:23 100 01/30/23 10:23 86 01/30/23 10:21 85 01/30/23 10:21 112/59 L 01/30/23 10:18 99 01/30/23 10:18 84 01/30/23 10:16 79 01/30/23 10:16 113/71 01/30/23 10:13 99 01/30/23 10:13 84 01/30/23 10:10 86 01/30/23 10:10 117/78 01/30/23 10:08 98 01/30/23 10:08 84 01/30/23 10:06 87 01/30/23 10:06 113/71 01/30/23 10:03 98 01/30/23 10:03 85 01/30/23 10:00 16 01/30/23 10:00 16 01/30/23 10:00 82 01/30/23 10:00 114/72 01/30/23 09:58 99 01/30/23 09:58 83 01/30/23 09:55 86 01/30/23 09:55 113/74 01/30/23 09:53 100 01/30/23 09:53 86 01/30/23 09:50 83 01/30/23 09:50 111/01/30/23 09:48 98 01/30/23 09:48 79 01/30/23 09:45 80 01/30/23 09:45 111/01/30/23 09:43 98 01/30/23 09:43 80 01/30/23 09:42 83 01/30/23 09:42 112/01/30/23 09:38 98 01/30/23 09:38 84 01/30/23 09:35 80 01/30/23 09:35 110/01/30/23 09:33 99 01/30/23 09:33 82 01/30/23 09:31 82 01/30/23 09:31 116/01/30/23 09:30 16 01/30/23 09:30 16 01/30/23 09:28 98 01/30/23 09:28 80 01/30/23 09:25 81 01/30/23 09:25 116/01/30/23 09:23 98 01/30/23 09:23 82 01/30/23 09:20 80 01/30/23 09:20 111/01/30/23 09:18 98 01/30/23 09:18 81 01/30/23 09:15 78 01/30/23 09:15 112/01/30/23 09:13 99 01/30/23 09:13 77 01/30/23 09:10 76 01/30/23 09:10 122/74 01/30/23 09:08 98 01/30/23 09:08 83 01/30/23 09:06 76 01/30/23 09:06 114/01/30/23 09:03 99 01/30/23 09:03 79 01/30/23 09:02 75 01/30/23 09:02 116/69 01/30/23 09:00 16 01/30/23 09:00 16 01/30/23 08:58 97 01/30/23 08:58 78 01/30/23 08:56 73 01/30/23 08:56 124/69 01/30/23 08:53 100 01/30/23 08:53 80 01/30/23 08:50 73 01/30/23 08:50 119/72 01/30/23 08:48 100 01/30/23 08:48 74 01/30/23 08:47 78 01/30/23 08:47 115/69 01/30/23 08:43 98 01/30/23 08:43 78 01/30/23 08:40 90 01/30/23 08:40 128/63 01/30/23 08:38 98 01/30/23 08:38 86 01/30/23 08:36 81 01/30/23 08:36 128/60 01/30/23 08:33 98 01/30/23 08:33 88 01/30/23 08:30 16 01/30/23 08:30 16 01/30/23 08:30 85 01/30/23 08:30 112/59 L 01/30/23 08:28 100 01/30/23 08:28 84 01/30/23 08:28 117/63 01/30/23 08:26 16 01/30/23 08:26 16 01/30/23 08:26 84 01/30/23 08:26 124/64 01/30/23 08:23 98 01/30/23 08:23 84 01/30/23 08:22 16 01/30/23 08:22 16 01/30/23 08:21 90 01/30/23 08:21 92/48 L 01/30/23 08:20 87 01/30/23 08:20 100/62 01/30/23 08:18 16 01/30/23 08:18 16 01/30/23 08:18 100 01/30/23 08:18 95 H 01/30/23 08:18 82 01/30/23 08:18 112/59 L 01/30/23 08:16 123/80 01/30/23 08:14 90 01/30/23 08:14 119/70 01/30/23 08:13 100 01/30/23 08:13 89 01/30/23 08:12 85 01/30/23 08:12 148/92 H 01/30/23 08:10 95 H 01/30/23 08:10 133/82 01/30/23 08:08 99 01/30/23 08:08 88 01/30/23 08:05 93 01/30/23 08:05 88 01/30/23 08:03 99 01/30/23 08:03 86 01/30/23 07:58 100 01/30/23 07:58 83 01/30/23 07:53 100 01/30/23 07:53 75 01/30/23 07:48 100 01/30/23 07:48 90 01/30/23 07:43 98 01/30/23 07:43 80 01/30/23 07:42 75 01/30/23 07:42 106/61 01/30/23 07:38 99 01/30/23 07:38 76 01/30/23 07:33 99 01/30/23 07:33 80 01/30/23 07:28 100 01/30/23 07:28 77 01/30/23 07:27 78 01/30/23 07:27 104/59 L 01/30/23 07:23 99 01/30/23 07:23 81 01/30/23 07:20 18 01/30/23 07:20 36.5 C 18 01/30/23 07:18 99 01/30/23 07:18 78 01/30/23 07:10 36.5 C 16 01/30/23 07:10 16 01/30/23 05:21 77 01/30/23 05:21 114/65 01/30/23 01:15 37.0 C 18 01/30/23 01:11 71 134/77 Coding Level of Care Code None
[2023-01-30] MEDS ORDERED: NURSING L&D Epidural Breakthrough Pain Update ONE (15:50)
--- NOTE | 2023-01-30 17:36 | Delivery Summary ---
Vaginal Delivery Summary Date of Service January 30, 2023 Vaginal Delivery Summary [facility] Vaginal Delivery Summary: Pre-delivery diagnoses: 27yo @ 39 04/04, spontaneous labor, GBS+ Post-delivery diagnoses: same Procedure: spontaneous vaginal delivery, repair of 2nd degree perineal laceration Surgeon: Aubrie Palma DO Complications: none Findings: Viable female . Apgars: 7/9. Weight pending, please see nursery records Estimated blood loss: 300ml Description of delivery: The patient progressed to complete with epidural anesthesia. She then began to push. She spontaneously vaginally delivered a viable from the cephalic presentation. The head delivered in GRADY position. Nuchal cord x 1, tight - unable to safely reduce. The anterior shoulder did not deliver immediately, therefore the patient was repositioned using McRobert's maneuver. Attempt was made to deliver the posterior shoulder. When this was not successful, the patient was repositioned again and the anterior shoulder began to deliver on its own. The nuchal cord was immediately unwrapped from the baby and the cord was doubly clamped and cut - the was immediately handed over to the pediatrics team, where a spontaneous cry was heard. The shoulder dystocia scenario lasted less than 1 minute. I suspect it was more likely that the baby did not deliver immediately after the head because of the tight nuchal - however did not want to cut the nuchal right away in the moment, in case it was a true shoulder dystocia. A segment was retained for cord gases. Cord blood was obtained. The placenta was delivered spontaneously intact with a 3-vessel cord. The uterus and vagina were swept of clots and debris. IV pitocin was given. The uterus became firm. The cervix, vagina, and perineum were inspected and a 2nd degree perineal laceration was noted, repaired in standard fashion with 3-0 Vicryl. Excellent hemostasis was observed. The mother and baby are recovering in stable and good condition in the room. Sponge, needle and instrument counts were correct x 2. Aubrie Palma DO [facility] Vaginal Delivery Charge Vaginal Delivery Codes: 35017 global code for the antepartum, delivery, and post- Delivery Type Details: [facility]
[2023-01-30 17:49] LABS: Base Excess Cord Arterial Bld 0.4 mEq/L (-9-1.8); CO2 Cord Arterial Blood 57 mmHg (39.1-73.5); HCO3 Cord Arterial Blood 28 mmol/L (19.7-28.5); Oxygen Sat Cord Arterial Blood < 60.0 % (<60); PO2 Cord Arterial Blood < 20 mmHg (4.1-31.7)
[2023-01-30] MEDS ORDERED: HYDROCORTISONE ACETATE 25 MG SUPP PR PRN (17:51)
[2023-01-30] MEDS ORDERED: bisacodyL 10 MG SUPP PR PRN (17:51)
[2023-01-30] MEDS ORDERED: DIPHTHERIA/TETANUS/PERTUSSIS Vaccine (Tdap, Age 7+yrs) 0.5mL SYR/VL IM ONE (17:51)
[2023-01-30] MEDS ORDERED: oxyCODONE/ACETAMINOPHEN 5mg/325mg TAB PO PRN (17:51)
[2023-01-30] MEDS ORDERED: BENZOCAINE 20% SPRY 85 APPLN/85 GM CAN EXT PRN (17:51)
[2023-01-30] MEDS ORDERED: ACETAMINOPHEN 325 MG TAB PO PRN (17:51)
--- NOTE | 2023-01-30 18:08 | Anesthesia Procedure Note ---
Date of Service January 30, 2023 Anesthesia Post Epidural Note Vital Signs Vital Signs: Temp Pulse Resp BP Pulse Ox 36.7 C 71 18 123/75 98 01/30/23 17:15 01/30/23 17:52 01/30/23 18:02 01/30/23 17:52 01/30/23 16:53 Pain Intensity Left Abdomen: Pain Intensity: 5 Notes Mental Status: alert / awake / arousable Nausea / Vomiting: adequately controlled Pain: adequately controlled Airway Patency, RR, SpO2: stable & adequate BP & HR: stable & adequate Hydration State: stable & adequate Neuraxial Anesthesia: was administered and sensory block is resolving Anesthetic Complications: no major complications apparent Epidural: Removed without complications and With tip intact
[2023-01-30] MEDS ORDERED: DOCUSATE SODIUM 100 MG CAP PO ONE (19:42)
[2023-01-30] MEDS: DOCUSATE SODIUM 100 MG CAP PO SCH (19:51)
[2023-01-31] MEDS: IBUPROFEN 600 MG TAB PO PRN ×3 (01:08→13:06)
[2023-01-31 06:25] LABS: Hematocrit (blood only) 31.3 % (37.0-47.0); Hemoglobin 10.7 g/dl (12.0-16.0)
[2023-01-31] MEDS: DOCUSATE SODIUM 100 MG CAP PO SCH ×2 (07:50→20:36)
[2023-01-31] MEDS: PRENATAL VITAMIN 1 TAB PO SCH (07:50)
--- NOTE | 2023-01-31 09:39 | Obstetrical Progress Note ---
Date of Service January 31, 2023 Assessment & Plan (1) Vaginal delivery: PPD#1 doing well. Routine care. Plans for DC home tomorrow. Subjective Ambulation: ambulating normally Voiding: no voiding problems Diet Tolerance:: regular diet Lochia:: Moderate Review of Systems All systems reviewed & are unremarkable except as noted in HPI & below Physical Exam Constitutional WD/WN, vitals as above no acute distress Respiratory normal respiratory effort Cardiovascular Rate/Rhythm: regular rate and regular rhythm Gastrointestinal (Abdomen) Inspection/Auscultation: abdomen normal to inspection; abdomen not distended Percussion/Palpation: abdomen soft Genitourinary OB Exam Abdomen: + fundal height Fundus: + firm; not tender Results & Data Vital Signs (Past 12 Hours) Vital Signs Temp Pulse Resp BP Pulse Ox O2 Del Method 01/31/23 07:50 36.8 C 77 18 121/83 97 Room Air 01/31/23 04:05 36.4 C L 78 16 110/70 97 Room Air 01/30/23 23:00 36.9 C 77 16 122/77 99 Room Air
[2023-01-31] MEDS ORDERED: bisacodyL 5 MG TABEC PO SCH (20:00)
[2023-01-31 23:09] VITALS: O2SAT 98
[2023-02-01] MEDS: IBUPROFEN 600 MG TAB PO PRN ×2 (06:25→06:27)
--- NOTE | 2023-02-01 06:33 | Obstetrical Progress Note ---
Date of Service <Erin Browning MD - Last Filed: 02/01/23 07:21> February 01, 2023 Assessment & Plan <Erin Browning MD - Last Filed: 02/01/23 07:21> (1) Encounter for assessment: Plan Patient with the above mentioned history and findings was evaluated at bedside and found awake, alert, oriented in all spheres, afebrile, and in no acute distress. Vital signs showed no fever and blood pressures remained stable. Her blood type is O positive and most recent hemoglobin at 10.7 g/dL. She is GBS positive treated intrapartum and rubella immune. Overall, patient is doing well clinically. Will discharge today. Patient was counselled on discharge instructions. She is to make an appointment with her OB for 6 weeks after discharge for follow up evaluation. All questions were answered. <Aubrie Palma DO - Last Filed: 02/01/23 07:21> (1) Encounter for assessment: Subjective <Erin Browning MD - Last Filed: 02/01/23 07:21> Stefanie is a 27 y/o female who is now PPD # 2 following at 39 1/7. Reports feeling well overall this morning. Refers mild abdominal cramping & 3/10 pain well managed on analgesics. Voiding spontaneously. Tolerating meals overnight and able to ambulate some. Passing gas and has had a bowel movement. Some persistent lochia with some improvement this morning. . Constitutional: no fever, no chills or no sweats Denies shortness of breath or difficulty breathing Cardiovascular: no chest pain or no palpitations Breast: no breast pain Genitourinary (female): no dysuria Neurologic: no headache(s) Denies changes in vision Physical Exam <Erin Browning MD - Last Filed: 02/01/23 07:21> General: Alert. Oriented to person, time, and place. Afebrile. No acute distress. Eyes: pupils equal and reactive to light bilaterally, extraocular movements intact. Cardiac: Regular rate and rhythm, no murmurs/rubs/gallops. Respiratory: Clear to auscultation bilaterally. No increased work of breathing. Symmetrical chest rise. No respiratory distress. Abdomen: Soft, nontender, nondistended. Bowel sounds present. Uterus: Uterine fundus firm, non-tender, and palpable below umbilicus. Lower Extremities: Mild bilateral lower extremity swelling. No deep calf pain. Enrique's negative bilaterally. Psych: Euthymic affect. Mood and affect congruence. Regular speech rate and content. Results & Data <Erin Browning MD - Last Filed: 02/01/23 07:21> Vital Signs (Past 12 Hours) Vital Signs Temp Pulse Resp BP Pulse Ox O2 Del Method 01/31/23 23:08 36.7 C 66 20 111/73 98 Room Air 01/31/23 19:00 36.9 C 74 16 132/82 96 Room Air Supervising Physician <Aubrie Palma DO - Last Filed: 02/01/23 07:21> Co-Signing Physician Notes Resident Physician Supervision Note: I was present with Dr. Browning during the history and exam. I discussed the case with the resident and agree with the findings and plan as documented in the note. Any exceptions or clarifications are listed here: PPD#2 doing well, reviewed DC instructions. Documented By: Aubrie Palma DO Resident Activity Tracking <Erin Browning MD - Last Filed: 02/01/23 07:21> Resident Involvement: Resident Care Provided Care Provided: OB Delivery
[2023-02-01 07:54] VITALS: PULSE 79; RESP 16; TEMP 97.5
[2023-02-01] MEDS: PRENATAL VITAMIN 1 TAB PO SCH (08:17)
[2023-02-01] MEDS: DOCUSATE SODIUM 100 MG CAP PO SCH (08:18)
[2023-02-01 09:00] VITALS: BP 111/73
== END 2023-02-01 12:24 | disposition home or self-care (01) | DRG 807 ==
LOC: OPB 01:04 → 4S1 01:07 → 4E2 19:48